=== PATIENT | female | born 1985 | race Caucasian/White ===

== ENCOUNTER → 2017-02-19 | Outpatient (CLI) | payer BC, OTHER ==
--- NOTE | 2017-02-20 10:40 | US ---
EXAMINATION TYPE: US kidneys/renal and bladder DATE OF EXAM: 02/19/2017 4:48 PM COMPARISON: NONE CLINICAL HISTORY: R10.9 Left and Rt Flank Pain N28.9 Known Renal Di. Bilateral flank pain, history o f kidney stones EXAM MEASUREMENTS: Right Kidney: 12.0 x 5.9 x 4.4 cm Left Kidney: 12.1 x 5.1 x 4.8 cm Right Kidney: dense echogenic area lower pole = 0.5cm, prominent collecting system Left Kidney: dense echogenic area lower pole = 0.4cm Bladder: appears wnl Bilateral Jets seen: yes There is no evidence for hydronephrosis at this point in time. No nephrolithiasis is seen. No ani s are identified. The urinary bladder is anechoic. Bilateral ureteral jets are seen. IMPRESSION: 1. Right renal stone without obstruction. 2. Lobation of the left kidney. 3. Superior pole left renal calcification.
== END | disposition home or self-care (01) ==
LOC: RADUSWWP 16:18
PROVIDERS: ATTEND Internal Medicine
DX: N20.0 Calculus of kidney (principal); N28.89 Other specified disorders of kidney and ureter; Q63.1 Lobulated, fused and horseshoe kidney
CPT/HCPCS: 76770

== ENCOUNTER → 2023-09-19 | Outpatient (CLI) | payer BC, OTHER ==
--- NOTE | 2023-09-19 08:08 | USB ---
Patient History: Menarche at age 14. First Full-Term at age 21. Risk Values: Sabina 5 year model risk: 0.2%. NCI Lifetime model risk: 7.5%. Technique: Method: Targeted. Findings: The lower section of the breast of the right breast, the axilla of the right breast and the retroareolar of the right breast were scanned. No solid or cystic masses are identified. No ultrasound abnormality at the level pain right breast. Overall Assessment: Negative, BI-RAD 1 Management: Screening Mammogram of both breasts at age 42. A clinical breast exam by your physician is recommended on an annual basis and results should be correlated with mammographic findings. This exam should not preclude additional follow-up of suspicious palpable abnormalities. Results were given to the patient verbally at the time of exam. Electronically signed and approved by: Sebastián Bustamante D.O. Radiologis
--- NOTE | 2023-09-19 08:08 | MM ---
Reason for Exam: Clinical finding. Baseline mammogram. Indicated Problems: Pain of the right side for 3 Week(s). Patient History: Menarche at age 14. First Full-Term at age 21. Last menstrual period: 09/03/2023 Risk Values: Sabina 5 year model risk: 0.2%. NCI Lifetime model risk: 7.5%. Prior Study Comparison: Patient's first Mammogram. No prior studies available for comparison. Tissue Density: There are scattered fibroglandular densities. Findings: Analyzed By CAD. Pattern appears symmetrical. No suspicious abnormality within the right breast correlating to patient's pain. No suspicious groups of microcalcifications, spiculated or lobular masses, architectural distortion or other secondary signs of malignancy are mammographically apparent. Overall Assessment: Incomplete: need additional imaging evaluation, BI-RAD 0 Management: Diagnostic Breast Ultrasound of the right breast. A negative mammogram report should not preclude additional follow up of suspicious palpable abnormalities. Patient should continue monthly self breast exam. A clinical breast exam by your physician is recommended on an annual basis and results should be correlated with mammographic findings. Electronically signed and approved by: Sebastián Bustamante D.O. Radiologis
== END | disposition home or self-care (01) ==
LOC: RADMAMWWP 07:14
PROVIDERS: ATTEND Family Medicine
DX: N64.4 Mastodynia (principal); R92.323 Mammographic fibroglandular density, bilateral breasts
CPT/HCPCS: 77062; 77066

== ENCOUNTER → 2023-11-16 | Outpatient (CLI) | payer BC, OTHER ==
--- NOTE | 2023-11-17 21:07 | US ---
EXAMINATION TYPE: US pelvic complete with transvaginal DATE OF EXAM: 11/16/2023 COMPARISON: NONE CLINICAL INDICATION: Female, 38 years old with history of N92.0 EXCESS FREQUENT MENSTRUATION; Heavy, long cycles. Patient states last two cycles lasted 10+ days. TECHNIQUE: Transvaginal (TV) and Transabdominal (TA) . Transabdominal sonographic images of the pelvis were acquired. Transvaginal sonographic images were medically necessary to better assess the following anatomy: pelvic structures. Date of LMP: 10/27/2023 EXAM MEASUREMENTS: Uterus: 9.9 x 5.6 x 6.9 cm Endometrial Stripe: 0.9 cm Right Ovary: unable to visualize due to overlying bowel gas Left Ovary: 3.5 x 2.0 x 2.1 cm Limited visualization due to overlying bowel gas. Patient did not have full bladder for transabdominal imaging. 1. Uterus: Anteverted There is a 2.7 x 2.8 x 2.4 isoechoic area with posterior shadowing within the left uterus. Vascularity is shown. Probable fibroid 2. Endometrium: wnl 3. Right Ovary: Obscured by overlying bowel gas 4. Left Ovary: wnl 5. Bilateral Adnexa: Obscured by overlying bowel gas 6. Posterior cul-de-sac: wnl IMPRESSION: 1. Anterior fundal uterine fibroid. MTDD
== END | disposition home or self-care (01) ==
LOC: RADUSWWP 13:49
PROVIDERS: ATTEND Family Medicine
DX: D25.9 Leiomyoma of uterus, unspecified (principal); N92.0 Excessive and frequent menstruation with regular cycle
CPT/HCPCS: 76830; 76856